=== PATIENT | female | born 1950 | race Caucasian/White ===

== ENCOUNTER 2018-11-12 14:00 | Emergency (ER) | payer MEDICARE, OTHER ==
[2018-11-12 14:21] VITALS: BP 188/90
--- NOTE | 2018-11-12 14:42 | UC ---
Cardiac HPI - HPI Summary HPI Summary: 68-year-old female presents with reports of intermittent chest pain for the past month. Describes as a substernal heaviness. States occasionally it feels like she "swallowed something that didn't quite go down". Reports that typically comes on at rest and she'll feel as if she has no energy to do anything. States she had an episode around noon today that lasted for approximately 1 hour. She went to her primary care provider who attend directed her to come here for further evaluation. States she is presently symptom-free. Denies fever, chills, diaphoresis, dizziness, lightheadedness, palpitations, edema, shortness of breath, cough, abdominal pain, heartburn, nausea, or vomiting. - History of Current Complaint Chief Complaint: UCChestPain Stated Complaint: CHEST PAIN SOB Time Seen by Provider: 11/12/18 14:26 Hx Obtained From: Patient Pain Intensity: 4 - Allergy/Home Medications Allergies/Adverse Reactions: Allergies Allergy/AdvReac Type Severity Reaction Status Date / Time No Known Allergies Allergy Verified 11/12/18 14:16 Home Medications: Home Medications Mars/D3/Mag11/Zinc/Clinical Informatics Director/Skip/Bor [Caltrate 600+D Plus Tablet] 1 tab PO DAILY 11/12 [History Confirmed 11/12/18] PMH/Surg Hx/FS Hx/Imm Hx Cardiovascular History: Hypertension - Surgical History Surgical History: Yes Surgery Procedure, Year, and Place: OOPHERECTOMY, T&A, MRSA INFECTION DEBRIEDMENT - Family History Known Family History: Positive: Cardiac Disease - Mother [place] in her 70's, Hypertension - Mother and father - Social History Occupation: Employed Part-time Lives: With Family Alcohol Use: Occasionally Substance Use Type: None Smoking Status (MU): Never Smoked Tobacco Review of Systems All Other Systems Reviewed And Are Negative: Yes Constitutional: Negative: Fever, Chills, Other - diaphoresis Respiratory: Negative: Shortness Of Breath, Cough Cardiovascular: Positive: Chest Pain. Negative: Palpitations Gastrointestinal: Negative: Abdominal Pain, Vomiting, Diarrhea, Nausea Genitourinary: Positive: Negative Musculoskeletal: Positive: Negative Neurological: Positive: Negative Is Patient Immunocompromised?: No Physical Exam - Summary Physical Exam Summary: GENERAL APPEARANCE: Well developed, well nourished, alert and cooperative, and appears to be in no acute distress. CARDIAC: Normal S1 and S2. No S3, S4 or murmurs. Rhythm is regular. There is no peripheral edema, cyanosis or pallor. Extremities are warm and well perfused. Capillary refill is less than 2 seconds. Peripheral pulses intact. LUNGS: Clear to auscultation without rales, rhonchi, wheezing or diminished breath sounds. ABDOMEN: Positive bowel sounds. Soft, nondistended, nontender. No guarding or rebound. No masses or hepatosplenomegally. MUSKULOSKELETAL: ROM intact to all extremities. No joint erythema or tenderness. Normal muscular development. Normal gait. SKIN: Skin normal color, texture and turgor with no lesions or eruptions. Triage Information Reviewed: Yes Vital Signs: Initial Vital Signs Temp 97.4 F 11/12/18 14:13 Pulse 64 11/12/18 14:13 Resp 16 11/12/18 14:13 BP 188/90 11/12/18 14:13 Pulse Ox 99 11/12/18 14:13 Vital Signs Reviewed: Yes Diagnostics - EKG Cardiac Rate: NL - Rate 63 Cardiac Rhythm: Sinus: Normal Ectopy: None ST Segment: Normal Summary of EKG Findings: NSR rate 63. No ROD, ectopy, or T-wave abnormalities. No significant changes when compared to study from 12/26/2011. - Assessment/Plan Course Of Treatment: 68-year-old female presents with reports of intermittent chest pain for the past month. Describes as a substernal heaviness. States occasionally it feels like she "swallowed something that didn't quite go down". Reports that typically comes on at rest and she'll feel as if she has no energy to do anything. States she had an episode around noon today that lasted for approximately 1 hour. She went to her primary care provider who attend directed her to come here for further evaluation. States she is presently symptom-free. Denies fever, chills, diaphoresis, dizziness, lightheadedness, palpitations, edema, shortness of breath, cough, abdominal pain, heartburn, nausea, or vomiting. Afebrile. Patient was hypertensive at triage otherwise vital signs stable. EKG showed normal sinus rhythm at a rate of 63 with no ectopy, ST elevation, or T-wave abnormalities. Exam was overall unremarkable. Based on her history, I am recommending further evaluation in the emergency room at this time. She is agreeable to this and elects to transport via private vehicle. - Differential Diagnoses - Chest Pain Differential Diagnosis/HQI/PQRI: Acute MA, ACS, Angina, Chest Wall, GI Disease, Lower Respiratory Infection - Clinical Impression Provider Diagnosis: Chest pain Discharge - Sign-Out/Discharge Documenting (check all that apply): Patient Departure All imaging exams completed and their final reports reviewed: No Studies - Discharge Plan Condition: Stable Disposition: HOME Patient Education Materials: Chest Wall Pain (ED) Referrals: Yojana Barraza MD [Primary Care Provider] - Additional Instructions: Your EKG in the clinic today showed no acute changes however based on your history I cannot rule out the possibility that your symptoms may be heart related. I am recommending that you go to the emergency room at [facility] for further evaluation. - Billing Disposition and Condition Condition: STABLE Disposition: Home
== END 2018-11-12 14:46 | disposition home or self-care (01) ==
LOC: UCEAST 14:00
DX: R07.89 Other chest pain (principal); I10 Essential (primary) hypertension
CPT/HCPCS: 93005; 99212; G0463

== ENCOUNTER 2018-11-12 15:14 | Inpatient (IN) | payer MEDICARE ==
[2018-11-12] MEDS ORDERED: Nitroglycerin TAB 0.4 MG* 0.4 MG TAB SL ONE (17:44)
[2018-11-12] MEDS ORDERED: Aspirin 81 mg CHEW TAB* 81 MG TAB.CHEW PO ONE (17:44)
--- NOTE | 2018-11-12 17:46 | ED ---
HPI Cardiac - HPI Summary HPI Summary: This patient is a 68 year old F presenting to ED from with a chief complaint of intermittent chest discomfort with mild SOB since the last month. The CC is described as non-radiating. The sx dont always occur at the same time. The patient rates the pain 1/10 in severity currently. Symptoms aggravated by stress. Symptoms alleviated by nothing. She has been putting off coming to get seen because she is taking care of her granddaughter. The patient went to [place] who sent her to [facility] and they sent her here. She says she sometimes feels some discomfort in her jaw bilaterally. Patient denies cough and fever. PMHx of HTN (took medications about 16 years ago). Denies HLD or any cardiac hx. Denies substances or alcohol use and is a nonsmoker. Fam Hx includes mother passed from an [place] in her 70s and her father passed from [place]. The patient splits her own wood and dugan firewood. - History of Current Complaint Chief Complaint: EDChestPainROMI Stated Complaint: CHEST DISCOMFORT PER PT Time Seen by Provider: 11/12/18 17:27 Hx Obtained From: Patient Onset/Duration: Started Weeks Ago, Still Present Timing: Intermittent Current Severity: Mild Pain Intensity: 1 Pain Scale Used: 0-10 Numeric Chest Pain Radiates: No Aggravating Factor(s): Other: - stress Alleviating Factor(s): Nothing Associated Signs and Symptoms: Positive: Chest Pain - discomfort, Recent Stress , Shortness of Breath. Negative: Fever, Cough - Allergy/Home Medications Allergies/Adverse Reactions: Allergies Allergy/AdvReac Type Severity Reaction Status Date / Time No Known Allergies Allergy Verified 11/12/18 15:34 PMH/Surg Hx/FS Hx/Imm Hx Endocrine/Hematology History: Denies: Hx Diabetes, Hx Thyroid Disease Cardiovascular History: Denies: Hx Hypertension Respiratory History: Denies: Hx Asthma, Hx Chronic Obstructive Pulmonary Disease (COPD) GI History: Denies: Hx Ulcer - Surgical History Surgery Procedure, Year, and Place: OOPHERECTOMY, T&A, MRSA INFECTION DEBRIEDMENT Infectious Disease History: No Infectious Disease History: Reports: Hx of Known/Suspected MRSA Denies: Hx Hepatitis, Hx Human Immunodeficiency Virus (HIV), Traveled Outside the [place] in Last 30 Days - Family History Known Family History: Positive: Cardiac Disease - Mother ND in her 70's, Hypertension - Mother and father, Other Family History: father passed from [place] - Social History Alcohol Use: Occasionally Substance Use Type: Reports: None Smoking Status (MU): Never Smoked Tobacco Review of Systems Negative: Fever, Chills Negative: Erythema Positive: Other - sometimes feels some discomfort in her jaw bilaterally. Negative: Sore Throat Positive: Chest Pain - discomfort Positive: Shortness Of Breath. Negative: Cough Negative: Abdominal Pain, Vomiting, Nausea Negative: dysuria, hematuria Negative: Myalgia, Edema Negative: Rash Neurological: Other - denies dizziness Positive: Other - recent stress All Other Systems Reviewed And Are Negative: Yes Physical Exam - Summary Physical Exam Summary: Constitutional: Well-developed, Well-nourished, Alert. (-) Distressed Skin: Warm, Dry HENT: Normocephalic; Atraumatic Eyes: Conjunctiva normal Neck: Musculoskeletal ROM normal neck. (-) JVD, (-) Stridor, (-) Tracheal deviation Cardio: Rhythm regular, rate normal, Heart sounds normal; Intact distal pulses; The pedal pulses are 2+ and symmetric. Radial pulses are 2+ and symmetric. (-) Murmur Pulmonary/Chest wall: Effort normal. (-) Respiratory distress, (-) Wheezes, (-) Rales Abd: Soft, (-) epigastric tenderness, (-) Distension, (-) Guarding, (-) Rebound Musculoskeletal: (-) Edema Lymph: (-) Cervical adenopathy Neuro: Alert, Oriented x3 Psych: Mood and affect Normal Triage Information Reviewed: Yes Vital Signs On Initial Exam: Initial Vitals Temp Pulse Resp BP Pulse Ox 97.9 F 63 16 215/111 98 11/12/18 15:24 11/12/18 15:24 11/12/18 15:24 11/12/18 15:24 11/12/18 15:24 Vital Signs Reviewed: Yes Diagnostics - Vital Signs Vital Signs Temp Pulse Resp BP Pulse Ox 11/12/18 15:24 97.9 F 63 16 215/111 98 - Laboratory Result Diagrams: 11/12/18 18:13 11/12/18 18:13 Lab Statement: Any lab studies that have been ordered have been reviewed, and results considered in the medical decision making process. - Radiology CXR Radiology Interpretation Completed By: Radiologist Summary of Radiographic Findings: NO ACTIVE CARDIOPULMONARY DISEASE. Dr. Grady has reviewed this radiology report. - EKG 1543 Cardiac Rate: NL - 61 BPM EKG Rhythm: Sinus Rhythm Summary of EKG Findings: No STEMI Disposition - Course Assessment/Plan: This patient is a 68 year old F presenting to ED from with a chief complaint of intermittent chest discomfort with mild SOB since the last month. In the ED course, the patient was given NTG and ASA. CXR reveals NO ACTIVE CARDIOPULMONARY DISEASE. EKG reveals NSR at 61 BPM and no STEMI. Consulted Dr. Sweeney at 1858 who says to reassess her BP after nitro paste. ICU vs. floor. She will be signed out to Dr. Rubin, pending re-evaluation. - Differential Dx - Cardiopulmonary Differential Diagnoses - Cardiopulmonary: Other - hypertensive emergency, angina - Diagnoses Provider Diagnoses: Hypertensive emergency, Angina pectoris - Physician Notifications Discussed Care Of Patient With: Mansi Sweeney Time Discussed With Above Provider: 18:58 Instructed by Provider To: Other - Consulted Dr. Sweeney who says to reassess her BP after nitro paste. ICU vs. floor. - Critical Care Time Critical Care Time: 30-74 min - 45 minutes Discharge - Sign-Out/Discharge Documenting (check all that apply): Sign-Out Patient - pending re-eval Signing out patient TO: Rafael Rubin Patient Received Moderate/Deep Sedation with Procedure: No - Discharge Plan Condition: Stable Referrals: Yojana Barraza MD [Primary Care Provider] - - Attestation Statements Document Initiated by Scribe: Yes Documenting Scribe: Sergio Stahl Provider For Whom Scribe is Documenting (Include Credential): Lalo Grady MD Scribe Attestation: I, Sergio Stahl, scribed for Lalo Grady MD on 11/12/18 at 1914. Status of Scribe Document: Ready
[2018-11-12 18:26] LABS: ABS Basophils 0.1 10^3/ul (0-0.2); ABS Eosinophils 0.4 10^3/ul (0-0.6); ABS Monocytes 0.5 10^3/ul (0-0.8); ABS Neutrophils 3.5 10^3/ul (1.5-7.7); ABS Nucleated RBC 0 10^3/ul; Hematocrit 41 % (33-41); Hemoglobin 13.6 g/dL (12.0-16.0); Lymphocyte % 30.1 %; Mean Corpuscular HGB Conc 33 g/dL (31-36); Mean Corpuscular Hemoglobin 26 pg (27-31); Mean Corpuscular Volume 80 fL (80-97); Nucleated Red Blood Cells % 0.1; Platelet Count 274 10^3/uL (150-450); Red Blood Count 5.18 10^6 /uL (3.70-4.87); Red Cell Distribution Width 15 % (10.5-15); White Blood Count 6.5 10^3/uL (3.5-10.8)
[2018-11-12 18:41] LABS: Troponin I 0.01 ng/mL (<0.04)
[2018-11-12 18:53] LABS: Albumin 4.1 g/dL (3.2-5.2); Albumin/Globulin Ratio 1.7 (1-3); Calcium 9.4 mg/dL (8.6-10.3); EGFR African American 96.5 (>60); EGFR Non-African American 79.8 (>60); Globulin 2.4 g/dL (2-4); Potassium 4.1 mmol/L (3.5-5.0); Total Bilirubin 0.6 mg/dL (0.2-1.0); Total Protein 6.5 g/dL (6.4-8.9)
[2018-11-12] MEDS ORDERED: Nitro 2% OINT* (Nitroglycerin) 1 INCH/PAK PAK TOPICAL ONE (19:00)
--- NOTE | 2018-11-12 19:27 | ED ---
Progress - Progress Note Progress Note: RECEIVING SIGN-OUT FROM DR. GRADY AT SHIFT CHANGE PENDING RE-EVAL AFTER NITRO PASTE, RECOMMENDS ICU OR ADMISSION. Course/Dx - Course Course Of Treatment: RECEIVING SIGN-OUT FROM DR. GRADY AT SHIFT CHANGE PENDING RE-EVAL AFTER NITRO PASTE, RECOMMENDS ICU OR ADMISSION. - Diagnoses Provider Diagnoses: Chest pain, Hypertensive emergency without congestive heart failure Discharge - Sign-Out/Discharge Documenting (check all that apply): Receiving Sign-Out Receiving patient FROM: Lalo Grady - pending re-eval after nitro paste - Discharge Plan Condition: Guarded Disposition: ADMITTED TO [facility] - Billing Disposition and Condition Condition: GUARDED Disposition: Admitted to [facility] - Attestation Statements Document Initiated by Miltonibe: Yes Documenting Scribe: Keisha Menon Provider For Whom Scribe is Documenting (Include Credential): Dr. Rafael Rubin MD Scribe Attestation: Keisha Bo scribed for Dr. Rafael Rubin MD on 11/13/18 at 0541. Scribe Documentation Reviewed: Yes Provider Attestation: The documentation as recorded by the Keisha singer accurately reflects the service I personally performed and the decisions made by , Dr. Rafael Rubin MD Status of Scribe Document: Viewed
[2018-11-12] MEDS ORDERED: nitroGLYCERIN DRIP* 25,000 MCG/250 ML BTL IV ONE (20:17)
[2018-11-12] MEDS ORDERED: PROCHLORPERAZINE INJ 5 MG/ML 2 ML VIAL IV PRN (20:25)
[2018-11-12] MEDS ORDERED: Acetaminophen TAB* 325 MG PO PRN (20:25)
[2018-11-12] MEDS ORDERED: nitroGLYCERIN DRIP* 25,000 MCG/250 ML BTL IV SCH (21:00)
--- NOTE | 2018-11-12 22:22 | HP ---
CC: Dr. Barraza HISTORY AND PHYSICAL: DATE OF ADMISSION: 11/12/18 TIME OF EVALUATION: 8 p.m. PRIMARY CARE PROVIDER: Dr. Barraza. CHIEF COMPLAINT: Chest discomfort. HISTORY OF PRESENT ILLNESS: Ms. Mcclellan is a 68-year-old lady with a past medical history of morbid obesity, osteoarthritis, who presented to the emergency room with complaints of chest discomfort. She states that about a month ago she started to have episodes of retrosternal chest discomfort that she describes as "as if I swallowed something and it got stuck in my chest," 4/10 intensity, usually associated with exertion. The patient states that she can walk on flat surfaces, but when going uphi ll, she will get this chest sensation. She would stop, and after couple of minutes, she would be abl e to resume her activities. The patient states that she splits her own wood and the same thing would happen that she will have to stop in between to rest, the chest discomfort would subside and should be able to continue. She states that the symptoms remain the same, but they have become more frequent to the point she yamil led [facility] on 11/07/18 for an appointment, and she was scheduled to be seen today. She states that her blood pressure was elevated, and [facility] her symptoms and elevated blood pressure. As per [facility] documentation, her blood pressure was 188/90, and she was referred to the [facility] room for further evaluation. She denies fever, chills, palpitations, headaches, nausea, vomiting, diarrhea, or urinary complaints. The patient states that she usually takes some sort of pain medication for her arthritis at least 5 t imes a week. This past month she had a dental procedure performed and she took ibuprofen for 10 days . After this was completed, she was taking aspirin at least 3 times a week for joint pains and aches . PAST MEDICAL HISTORY: 1. Morbid obesity with a BMI of 43. 2. Osteoarthritis. MEDICATION LIST: Calcium plus vitamin D 1 tablet p.o. daily. ALLERGIES: No known drug allergies. FAMILY HISTORY: The patient's father had a stroke and of renal cancer. Her mother had hyperten naga for many years and passed of a heart attack in her 70s. SOCIAL HISTORY: The patient denies a history of tobacco or drug use. She states she drinks occasion ally. The last alcoholic beverage was at [place] time. Surrogate decision maker is her daughter Sharon Mcclellan, phone number is [phone]. The patient drinks 6 ounce cup of regular coffee a day. She is also under a lot of stress at home as she is taking care of her granddaughter. REVIEW OF SYSTEMS: A 14-point review of systems was performed and all the pertinent negatives and po sitive findings are in the HPI. PHYSICAL EXAMINATION GENERAL: The patient is an pleasant morbidly obese lady, sitting up in the ED stretcher, in no acute distress. VITAL SIGNS: Temperature 97.9, heart rate is 64, respiratory rate is 19, oxygen saturation is 99% on room air, blood pressure is 204/115. HEENT: Pupils are equal. Moist mucous membranes. CHEST: Breath sounds bilaterally with no added sounds. CVS: Normal S1, S2. Regular rate and rhythm. ABDOMEN: Obese, bowel sounds are present. EXTREMITIES: Legs are puffy, but there is no pitting edema. NEUROLOGIC: She is alert and oriented x3. She is able to move all 4 extremities. LABORATORY AND IMAGING DATA: The patient had a CBC that showed WBC of 6.5, hemoglobin of 13.6, nick tocrit of 41, platelets of 274, 54% neutrophils. D-dimer was less than 200. Chemistry showed a sodi um of 139, potassium of 4.1, chloride of 105, bicarb of 28, BUN of 19, creatinine of 0.7, glucose of 151, lactic acid of 1.4, calcium of 9.4. LFTs are normal. Troponin is 0.01. BNP is 26. EKG done on 11/12/18 at 1:58 p.m. shows sinus rhythm with no acute ischemic changes but signs of LVH. EKG done at 1543 showed similar findings. Her prior EKG from December 2011 did not have signs of LVH at that time. Chest x-ray was read by Radiology as no active cardiopulmonary disease, and to my read, I agree with it. ASSESSMENT AND PLAN: Mrs. Mcclellan is a 68-year-old lady with a past medical history of osteoarthrit is and morbid obesity, who presented to the emergency room with a month of episodes of exertional audra st discomfort, relieved by rest, that have increased in frequency, also found to have hypertensive ur gency. 1. Chest pain. The patient's exertional chest discomfort is concerning for coronary artery disease, but it could also be secondary to her uncontrolled undiagnosed hypertension. She will be admitted to the intensive care unit for a nitroglycerin drip for blood pressure control. She will have serial troponins and serial EKGs. An echocardiogram will be performed, but her EKG al ready shows signs of LVH. If acute coronary syndrome is ruled out, the patient will undergo exercise Myoview stress test. The patient states that her mother had a normal stress test 2 weeks prior to passing and this is a very e motional and stressful issue for her. In the differential is also GI issue as a cause of her chest discomfort as the patient is taking ibup rofen and aspirin frequently for pain. This is probably also playing a role on her hypertensive urge ncy. Plan at this time is to perform the cardiac workup, but she may benefit from further GI evaluat ion if her symptoms persist. 2. Hypertensive urgency. The patient will be admitted to intensive care unit for nitroglycerin drip . After her blood pressure is better controlled, we will need to add an agent for blood pressure con trol. 3. Morbid obesity. The patient would benefit from a referral to [facility]. 4. Osteoarthritis. We will prescribe acetaminophen p.r.n. 5. DVT prophylaxis: The patient has a score of 3 on the DVT Prophylaxis Risk Assessment Guide, and she will receive subcutaneous heparin. 6. Code status is full. TIME SPENT: Approximately 60 minutes was spent with the patient and family on interview, medical rec ords review, physical examination to complete this admission, more than half this time was spent face -to-face with the patient and coordination of care. [id number]/[facility] #: [id number]
[2018-11-12] MEDS: Heparin VIAL(*) 5000 UNITS/ML VIAL (FIVE THOUSAND) SUBCUT SCH (22:46)
[2018-11-12] MEDS ORDERED: amLODIPine TAB* 5 MG PO SCH (23:00)
[2018-11-13] MEDS: amLODIPine TAB* 5 MG PO SCH ×2 (05:48→07:38)
[2018-11-13] MEDS: Heparin VIAL(*) 5000 UNITS/ML VIAL (FIVE THOUSAND) SUBCUT SCH ×3 (05:48→22:17)
[2018-11-13] MEDS: Aspirin EC TAB* 81 MG TAB.EC PO SCH (07:38)
--- NOTE | 2018-11-13 07:39 | PN ---
Subjective Date of Service: 11/13/18 Interval History: No more chest pain, no cough, SOB. 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 Objective Active Medications: Acetaminophen (Tylenol Tab*) 650 mg PO Q6H PRN PRN Reason: pain/fever Amlodipine Besylate (Norvasc Tab*) 5 mg PO DAILY [facility] Stop: 11/13/18 11:00 Last Admin: 11/13/18 05:48 Dose: 5 mg Amlodipine Besylate (Norvasc Tab*) 10 mg PO DAILY [facility] Aspirin (Aspirin Ec Tab*) 81 mg PO DAILY [facility] Heparin Sodium (Porcine) (Heparin Vial(*)) 5,000 units SUBCUT Q8HR [facility] Last Admin: 11/13/18 05:48 Dose: 5,000 units Prochlorperazine Edisylate (Compazine Inj*) 5 mg IV Q6H PRN PRN Reason: NAUSEA/VOMITING Vital Signs - 8 hr 11/12/18 11/13/18 11/13/18 23:45 00:00 00:01 Temperature 96.6 F Pulse Rate 75 78 76 Respiratory 12 17 15 Rate Blood Pressure 138/66 137/71 (mmHg) O2 Sat by Pulse 94 96 96 Oximetry 11/13/18 11/13/18 11/13/18 00:15 00:22 00:30 Temperature Pulse Rate 71 64 62 Respiratory 18 17 15 Rate Blood Pressure 112/57 124/64 (mmHg) O2 Sat by Pulse 95 95 95 Oximetry 11/13/18 11/13/18 11/13/18 00:45 01:00 01:01 Temperature Pulse Rate 65 62 62 Respiratory 16 12 10 Rate Blood Pressure 141/60 123/66 (mmHg) O2 Sat by Pulse 95 96 95 Oximetry 11/13/18 11/13/18 11/13/18 01:15 01:30 01:46 Temperature Pulse Rate 67 65 68 Respiratory 15 14 13 Rate Blood Pressure 131/62 118/52 122/80 (mmHg) O2 Sat by Pulse 98 96 99 Oximetry 11/13/18 11/13/18 11/13/18 01:50 02:00 02:15 Temperature Pulse Rate 67 61 60 Respiratory 22 16 12 Rate Blood Pressure 122/80 151/70 140/67 (mmHg) O2 Sat by Pulse 94 94 97 Oximetry 11/13/18 11/13/18 11/13/18 02:30 02:45 03:00 Temperature Pulse Rate 60 61 58 Respiratory 16 15 15 Rate Blood Pressure 156/73 165/75 163/85 (mmHg) O2 Sat by Pulse 97 97 96 Oximetry 11/13/18 11/13/18 11/13/18 03:15 03:30 03:45 Temperature Pulse Rate 58 64 64 Respiratory 13 16 16 Rate Blood Pressure 147/73 139/77 145/70 (mmHg) O2 Sat by Pulse 97 98 95 Oximetry 11/13/18 11/13/18 11/13/18 04:00 04:15 04:30 Temperature 96.6 F Pulse Rate 64 62 61 Respiratory 17 13 13 Rate Blood Pressure 148/70 150/76 150/73 (mmHg) O2 Sat by Pulse 97 95 97 Oximetry 11/13/18 11/13/18 11/13/18 05:00 05:01 05:25 Temperature Pulse Rate 68 65 65 Respiratory 19 18 16 Rate Blood Pressure 166/78 164/81 (mmHg) O2 Sat by Pulse 96 96 96 Oximetry 11/13/18 11/13/18 11/13/18 05:33 06:00 06:01 Temperature Pulse Rate 60 62 62 Respiratory 14 16 16 Rate Blood Pressure 176/85 178/86 (mmHg) O2 Sat by Pulse 97 97 96 Oximetry Oxygen Devices in Use Now: None Appearance: Alert, partly up in ICU bed. In good spirits. Looks comfortable. Eyes: No Scleral Icterus Neck: NL Appearance and Movements; NL JVP Respiratory: Symmetrical Chest Expansion and Respiratory Effort, Clear to Auscultation, Clear to Percussion Cardiovascular: NL Sounds; No Murmurs; No JVD, RRR, No Edema, - Extremities: No Edema, No Clubbing, Cyanosis, - Skin: No Rash or Ulcers, No Nodules or Sclerosis, - Neurological: Alert and Oriented x 3, NL Sensation Result Diagrams: 11/12/18 18:13 11/12/18 18:13 Microbiology and Other Data: Microbiology 11/12/18 22:20 Nasal Screen MRSA (PCR) - Final Nasal Mrsa Not Detected Assess/Plan/Problems-Billing Assessment: - Patient Problems (1) Chest pain Current Visit: Yes Status: Acute Code(s): R07.9 - CHEST PAIN, UNSPECIFIED SNOMED Code(s): 82044430 Comment: Possible exertional angina. Troponin neg x 3. Exercise nuclear stress test ordered, echo. (2) HTN (hypertension) Current Visit: Yes Status: Acute Code(s): I10 - ESSENTIAL (PRIMARY) HYPERTENSION SNOMED Code(s): 66808012 Comment: To receive amlodipine 10 mg 11/13, then daily. (3) Hyperglycemia Current Visit: Yes Status: Acute Code(s): R73.9 - HYPERGLYCEMIA, UNSPECIFIED SNOMED Code(s): 24623982 Comment: A1C ordered. (4) Morbid obesity Current Visit: Yes Status: Acute Code(s): E66.01 - MORBID (SEVERE) OBESITY DUE TO EXCESS CALORIES SNOMED Code(s): 842248254 Comment: BMI 46.2.
[2018-11-13 08:08] LABS: HDL Cholesterol 51.6 mg/dL
[2018-11-13 08:31] LABS: TSH (Thyroid Stimulating Horm) 2.09 mcIU/mL (0.34-5.60)
--- NOTE | 2018-11-13 09:06 | ECHO ---
Patient: PINA COSME [facility] Rec#: [id number] : 1950 Date: 11/13/2018 Age: 68y Height: 163 cm / 64.2 in Weight: 121 kg / 266.7 lbs Sex: F BSA: 2.22 Room#: [facility] Admit Date#: 11/12/2018 Type: Inpatient Referring: Maggie Joseph MD Reading: Temo Oneil DO Pasting Machine Offbearer: Carla Casey RDCS CC: Yojana Barraza MD Transthoracic Echocardiogram Indication: Chest pain BP: 178/86 HR: 68 Rhythm: NSR Findings History: Morbid obesity, osteoarthritis, HTN. Technical Comments: The study quality is fair. Completed at 0830. Left Ventricle: The left ventricular chamber size is normal. Mild concentric left ventricular hypertrophy is observed. Global left ventricular wall motion and contractility are within normal limits. There is normal left ventricular systolic function. The estimated ejection fraction is 60-65%. Abnormal left ventricular diastolic function is observed. Left Atrium: The left atrium is mildly dilated. Right Ventricle: The right ventricular chamber size and systolic function are within normal limits. Right Atrium: The right atrium is mildly dilated. Aortic Valve: The aortic valve is trileaflet. The aortic valve leaflets are mildly thickened. There is a trace of aortic regurgitation. There is no evidence of aortic stenosis. Mitral Valve: The mitral valve leaflets are mildly thickened. There is trace to mild mitral regurgitation. There is no evidence of mitral stenosis. Tricuspid Valve: The tricuspid valve leaflets are normal. There is trace to mild tricuspid regurgitation. No pulmonary hypertension is noted. There is no tricuspid stenosis. Pulmonic Valve: The pulmonic valve appears normal. There is a trace pulmonic regurgitation. There is no pulmonic stenosis. Pericardium: There is no significant pericardial effusion. Aorta: There is mild dilatation of the ascending aorta. The aortic root is normal in size. Pulmonary Artery: The main pulmonary artery is not well visualized. Venous: The inferior vena cava is dilated. There is a greater than 50% respiratory change in the inferior vena cava dimension. Conclusions The left ventricular chamber size is normal. Mild concentric left ventricular hypertrophy is observed. Global left ventricular wall motion and contractility are within normal limits. There is normal left ventricular systolic function. The estimated ejection fraction is 60-65%. The left atrium is mildly dilated. The right ventricular chamber size and systolic function are within normal limits. No significant valvular abnormalities noted There is mild dilatation of the ascending aorta. No prior studies available for comparison at time of interpretation. Measurements Name Value Normal Range RVIDd (AP) 2D 3.6 cm (0.9 - 2.6) RVDdMajor (2D) 3.4 cm (2.2 - 4.4) RAd ISD 4CH 5.6 cm (3.4 - 4.9) RA (A4C)W 4.7 cm (2.9 - 4.6) IVSd (2D) 1.3 cm (0.6 - 1) LVPWd (2D) 1.2 cm (0.6 - 1) LVIDd (2D) 5 cm (3.6 - 5.4) LVIDs (2D) 3.6 cm - LV FS (2D) 29 % (25 - 45) Aortic Annulus 2.5 cm (1.4 - 2.6) Ao root diameter (2D) 3.4 cm (2.1 - 3.5) Ascending Ao 3.9 cm (2.1 - 3.4) Aortic arch 2.4 cm (1.8 - 3.4) LA dimension (AP) 2D 4.6 cm (2.3 - 3.8) LAd ISD 4CH 5.9 cm (2.9 - 5.3) LA ISD 4CH W 5 cm (2.5 - 4.5) Name Value Normal Range LA ESV BP (A/L) index 35 ml/m2 - Name Value Normal Range MV E-wave Vmax 0.5 m/sec - MV deceleration time 215 msec - MV A-wave Vmax 1.1 m/sec - MV E:A ratio 0.5 ratio - LV septal e' Vmax 0.05 m/sec - LV lateral e' Vmax 0.08 m/sec - LV E:e' septal ratio 10 ratio - LV E:e' lateral ratio 6.3 ratio - Name Value Normal Range AV Vmax 1.5 m/sec - AV VTI 37 cm - AV peak gradient 9 mmHg - AV mean gradient 5 mmHg - LVOT diameter 2 cm - LVOT Vmax 1.2 m/sec - LVOT VTI 26 cm - LVOT peak gradient 5 mmHg - LVOT mean gradient 3 mmHg - WILLIE Vmax 0.9 m/sec - Name Value Normal Range TR Vmax 2.2 m/sec - TR peak gradient 19 mmHg - RAP 8 mmHg - RVSP 27 mmHg - IVC diameter 2.6 cm - Name Value Normal Range PV Vmax 1.1 m/sec - PV peak gradient 5 mmHg - FL end-diastolic Vmax 1 m/sec - PA end-diastolic pressur4 mmHg -
[2018-11-13] MEDS: Lisinopril TAB* 10 MG PO SCH (13:53)
[2018-11-14] MEDS: Heparin VIAL(*) 5000 UNITS/ML VIAL (FIVE THOUSAND) SUBCUT SCH ×2 (05:13→14:51)
[2018-11-14] MEDS: Lisinopril TAB* 10 MG PO SCH (08:59)
[2018-11-14] MEDS: Aspirin EC TAB* 81 MG TAB.EC PO SCH (09:00)
[2018-11-14] MEDS ORDERED: amLODIPine TAB* 5 MG PO SCH (09:00)
[2018-11-14] MEDS ORDERED: Lisinopril TAB* 10 MG PO ONE (10:37)
[2018-11-14 12:16] VITALS: BP 161/78
[2018-11-14] MEDS ORDERED: Terazosin CAP* 1 MG PO SCH (13:00)
[2018-11-14] MEDS ORDERED: Atorvastatin* 10 MG TAB PO SCH (17:00)
--- NOTE | 2018-11-14 17:02 | CONSULT ---
Subjective Date of Service: 11/14/18 Interval History: PMD Dr. Barraza DATE OF ADMISSION: 11/12/18 Date of consult 11/14/2018 CHIEF COMPLAINT: Chest discomfort Reason for consult Chest discomfort. HISTORY OF PRESENT ILLNESS: Ms. Mcclellan is a 68-year-old woman with a past medical history as below. Several years ago she tried hiking and was very dyspneic. Last 1 month she has had intermittent feeling like food is stuck in her chest intermittently not necessarily related to food intake or exertion. She had been taking ibuprofen regularly earlier this month after a dental procedure. She has also had separate symptoms substernal chest pressure with doing stress full work on her computer or walking her dog the latter associated with dyspnea. If she rests for a minute the symptoms resolve. Her BP was severely elevated as an outpatient and now admitted. BP on admission was as high as 215/111 mmHg on admission. She was started on multiple BP medications. Stress MPI today she went 4 minutes on edwin protocol with no chest discomfort and no ischemic ekg changes. I reviewed her MPI images and they were normal. PAST MEDICAL HISTORY: 1. Morbid obesity with a BMI of 43. 2. Osteoarthritis. 3. Elevated BP in past not currently on medication 4. Pre-diabetes, newly diagnosed MEDICATION LIST: Calcium plus vitamin D 1 tablet p.o. daily. ALLERGIES: No known drug allergies. FAMILY HISTORY: The patient's father had a stroke and of renal cancer. Her mother had hypertension for many years and passed of a heart attack in her 70s. SOCIAL HISTORY: The patient denies a history of tobacco or drug use. She states she drinks occasionally. Surrogate decision maker is her daughter Dottie Mcclellan, phone number is [phone]. The patient drinks 36 ounces of regular coffee a day. She is also under a lot of stress at home as she is taking care of her granddaughter who is a self-harm risk. Medications Active Medications: Acetaminophen (Tylenol Tab*) 650 mg PO Q6H PRN PRN Reason: pain/fever Amlodipine Besylate (Norvasc Tab*) 10 mg PO DAILY [facility] Last Admin: 11/14/18 09:00 Dose: 10 mg Aspirin (Aspirin Ec Tab*) 81 mg PO DAILY [facility] Last Admin: 11/14/18 09:00 Dose: 81 mg Heparin Sodium (Porcine) (Heparin Vial(*)) 5,000 units SUBCUT Q8HR JOHNNY Last Admin: 11/14/18 14:51 Dose: 5,000 units Lisinopril (Prinivil Tab*) 20 mg PO DAILY [facility] Metoprolol Tartrate (Lopressor Tab*) 25 mg PO BID [facility] Prochlorperazine Edisylate (Compazine Inj*) 5 mg IV Q6H PRN PRN Reason: NAUSEA/VOMITING Home Medications: Mars/D3/Mag11/Zinc/Instrument Room Technician/Skip/Bor [Caltrate 600+D Plus Tablet] 1 tab PO DAILY 11/12 [History Confirmed 11/12/18] Review of Systems - Measurements Intake and Output: Intake and Output Last 24 Hours 11/12/18 11/13/18 11/14/18 11/15/18 06:59 06:59 06:59 06:59 Intake Total 420 240 0 Output Total 450 550 Balance -30 -310 0 Weight 268 lb 15.423 oz Intake: Medicated IV 20 nitroglycerin 20 Oral 400 240 0 Output: Urine 300 550 [place] 150 - Review of Systems Review of Systems Statement: All other review of systems negative, unless stated above. Objective Vital Signs: Temp Pulse Resp BP Pulse Ox 99.0 F 68 20 161/78 97 11/14/18 07:36 11/14/18 10:30 11/14/18 07:36 11/14/18 12:16 11/14/18 10:30 Oxygen Devices in Use Now: None Laboratory Results: 11/12/18 18:13 11/12/18 18:13 Total Bilirubin 0.60 mg/dL (0.2-1.0) 11/12/18 18:13 AST 8 U/L (13-39) L 11/12/18 18:13 ALT 16 U/L (7-52) 11/12/18 18:13 Alkaline Phosphatase 53 U/L (34-104) 11/12/18 18:13 B-Natriuretic Peptide 26 pg/mL (<=100) 11/12/18 18:13 Total Protein 6.5 g/dL (6.4-8.9) 11/12/18 18:13 Albumin 4.1 g/dL (3.2-5.2) 11/12/18 18:13 Globulin 2.4 g/dL (2-4) 11/12/18 18:13 Albumin/Globulin Ratio 1.7 (1-3) 11/12/18 18:13 Triglycerides 117 mg/dL 11/12/18 18:13 Cholesterol 155 mg/dL 11/12/18 18:13 LDL Cholesterol 80 mg/dL 11/12/18 18:13 HDL Cholesterol 51.6 mg/dL 11/12/18 18:13 TSH 2.09 mcIU/mL (0.34-5.60) 11/12/18 18:13 11/12/18 11/12/18 11/12/18 18:13 20:34 22:50 Troponin I 0.01 0.00 0.01 Diagnostic Imaging: Chest x-ray admission active cardiopulmonary disease, 11/13/2018: Normal LV size, mild LVH, normal LVEF 60-65%, mild LA dilation, no significant valvular abnormalities noted, 3.9 cm ascending aorta EKG Data: ekg this admission x 3: NSR, LVH with repolarization abnormalities Assessment/Plan 1. Chest pain - Resolved - Suspect hypertensive related - Ruled out for ACS - Normal exercise stress MPI 2. Obesity 3. Severe hypertension 4. Pre-diabetes - Continue primary prevention aspirin 81 mg po daily - Start primary prevention atorvastatin 10 mg po daily (ordered), cholesterol profile noted - Continue amlodipine 10 mg po daily (can take up to 1 week for full effectiveness) - Continue lisinopril 20 mg po daily, needs BMP 1 week - Continue metoprolol 25 mg po bid - Patient advised to avoid NSAIDs - Heart healthy diet and weight loss counseled on - Outpatient PMD follow up for further BP medication titration once full effectiveness of amlodipine realized - Patient can be discharged from a cardiac standpoint - Will arrange cardiology follow up in 3-4 weeks Thank you for allowing me to participate in the cardiovascular care of this patient. Please do not hesitate to contact me with questions or concerns.
--- NOTE | 2018-11-14 17:41 | PN ---
Progress Note - Progress Note Date of Service: 11/14/18 Note: Time spent on discharge including exam of patient, discussion with patient, nurse, Dr. Oneil, CM, review of EMR and preparation of discharge documents is 40 minutes.
[2018-11-14] MEDS ORDERED: Metoprolol Tartrate TAB* 25 MG PO SCH (21:00)
--- NOTE | 2018-11-14 23:57 | DS ---
CC: Dr. Barraza; Dr. Temo Oneil DISCHARGE SUMMARY: DATE OF ADMISSION: DATE OF DISCHARGE: 11/14/18 HISTORY OF PRESENT ILLNESS: This 68-year-old woman presented with chest discomfort. She described a s some type of pressure-like discomfort. It would occur when she splits wood, then would go away whe n she rested and then come back not quite as bad when she splits more wood. It also similar feeling occurred when she walked up a hill. She is really quite active and can walk on the flat ground quite a long ways. She had not seen her primary care physician for about a year. She had never been offered high blood pressure treatment, but was told she was getting close to that. In the hospital, she had markedly elevated blood pressure levels and is being discharged on 3 blood p ressure medications. She had a treadmill, stress test with nuclear scanning. Dr. Oneil saw her in consultation. He will follow up with her. He recommended statin, aspirin, and the blood pressure med ications we are giving her here. FINAL DIAGNOSES: 1. Hypertension. 2. Chest pain. 3. Morbid obesity. 4. Osteoarthritis. DISCHARGE MEDICATIONS: 1. Amlodipine 10 mg daily. 2. Aspirin 81 mg daily. 3. Atorvastatin 10 mg daily at 5 p.m. 4. Lisinopril 20 mg daily. 5. Metoprolol tartrate 25 mg b.i.d. 6. Caltrate 600 plus 3 tablets daily. CONDITION ON DISCHARGE: Stable. DISPOSITION ON DISCHARGE: Discharged home. [id number]/[facility] #: [id number]
[2018-11-15] MEDS ORDERED: Lisinopril TAB* 10 MG PO SCH (09:00)
== END 2018-11-14 18:30 | disposition home or self-care (01) | DRG 305 ==
LOC: ED 15:14 → ICU 20:01 → MEDTELE 11-13 18:15
PROVIDERS: ADMIT Internal Medicine; ATTEND Internal Medicine
PROC: 4A12XM4 Monitoring of Cardiac Stress, External Approach (ICD-10-PCS; principal; 2018-11-14)
DX: I16.0 Hypertensive urgency (principal); I10 Essential (primary) hypertension; R73.9 Hyperglycemia, unspecified; E66.01 Morbid (severe) obesity due to excess calories; M19.90 Unspecified osteoarthritis, unspecified site; Z68.41 Body mass index [BMI] 40.0-44.9, adult; Z68.42 Body mass index [BMI] 45.0-49.9, adult; Z82.49 Family history of ischemic heart disease and other diseases of the circulatory system; Z86.14 Personal history of Methicillin resistant Staphylococcus aureus infection; Z72.89 Other problems related to lifestyle; Z82.3 Family history of stroke; Z80.51 Family history of malignant neoplasm of kidney; Z79.82 Long term (current) use of aspirin
CPT/HCPCS: 36415; 71045; 78452; 80053; 80061; 83036; 83605; 83880; 84443; 84484; 85025; 85379; 87641; 93005; 93017; 93306; 99285; A9270-GY; A9502; J1644